=== PATIENT | female | born 1970 | race Caucasian/White ===

== ENCOUNTER → 2023-11-19 12:04 | Outpatient (REF) | payer BC, SELFPAY ==
[2023-11-19 12:27] LABS: Draw Blood Only 4TUBES-GIVN2PT2MAIL
== END ==
LOC: REG 12:04
PROVIDERS: ATTENDING PHYSICIAN Chiropractor; FAMILY PHYSICIAN Family Medicine
DX: Z00.00 Encounter for general adult medical examination without abnormal findings (principal)
CPT/HCPCS: 36415